=== PATIENT | male | born 1980 | race Caucasian/White ===

== ENCOUNTER 2022-09-16 16:05 | Emergency (ER) | payer MEDICAID, SELFPAY ==
[2022-09-16 16:07] VITALS: BP 134/78; TEMP 36.6; O2SAT 98; BMI 18.8
--- NOTE | 2022-09-16 17:18 | EKG12_ITS ---
Test Reason : Blood Pressure : / mmHG Vent. Rate : 075 BPM Atrial Rate : 075 BPM P-R Int : 120 ms QRS Dur : 084 ms QT Int : 356 ms P-R-T Axes : 072 062 069 degrees QTc Int : 397 ms Normal sinus rhythm with sinus arrhythmia Normal ECG Confirmed by ALANNA WILSON, JAMES ([id number]), film editor RENITA HODGES ([id number]) on 09/20/2022 10:38:09 AM Referred By: FRANCESCA Confirmed By:JAMES MONDRAGON MD
--- NOTE | 2022-09-16 17:35 | NURSING ---
NO OLD EKGS
--- NOTE | 2022-09-16 17:37 | ED.RN ---
Per Dr. Gonzalez- no sitter needed.
--- NOTE | 2022-09-16 17:59 | EDS_ITS ---
HPI HPI - Psych History of Present Illness Chief Complaint: Suicidal Informant: patient Narrative Narrative: Patient is a 42-year-old male with history of bipolar disorder as well as substance abuse presenting for worsening depression. Patient states he has been feeling hopeless. He notes he had a suicide attempt by trying to stab his wrist on April 22 and was admitted to [facility]. He was on Zoloft, Abilify and BuSpar however he ran out of his meds has not followed up with anyone. He notes that he does usually use methamphetamines but stopped using 10 days ago. He intermittently uses marijuana and does use tobacco. Denies any alcohol use. Is currently homeless. Feels that his depression is worsening and is afraid he is on to get to the point that he tries to kill himself again. Currently does not have any HI or SI and has no plan. No other complaints at this time. [facility] NK 09/16/22 [History Last Taken Unknown] Allergy/AdvReac Type Severity Reaction Status Date / Time amphetamine [From Adderall] Allergy Hives Verified 09/16/22 16:06 dextroamphetamine Allergy Hives Verified 09/16/22 16:06 [From Adderall] citalopram [From Celexa] AdvReac Other Verified 09/16/22 16:06 tramadol AdvReac Other Verified 09/16/22 16:06 vilazodone [From Viibryd] AdvReac Vomiting Verified 09/16/22 16:06 Social History Smoking Status: Current every day smoker tobacco type: cigarettes ROS ROS ED Constitutional Constitutional ED: Denies chills or fever(s) Eyes Eyes: Denies change in vision ENT ENT ED: Denies sore throat Cardiovascular Cardiovascular: Denies chest pain Respiratory/Chest Respiratory/Chest: Denies cough Gastrointestinal Gastrointestinal: Denies nausea or vomiting Musculoskeletal Musculoskeletal: Denies arthralgias Psychiatric Psychiatric: Reports depression; Denies anxiety, suicidal ideation or suicidal thoughts EXAM Physical Exam Const Vital Signs: 09/16/22 16:07 Temperature 97.8 F Temperature Source Temporal Blood Pressure 134/78 H Blood Pressure Mean 96 Pulse Ox 98 Oxygen Delivery Method Room Air Positive well nourished and well developed General Appearance ED: well developed and NAD; Negative for pallor HEENT Reports moist mucous membranes Eyes PERRL and EOMs intact bilaterally Neck supple Resp normal respiratory effort and clear to auscultation bilaterally Cardio Rate: regular rate Rhythm: regular rhythm GI non-tender and non-distended Neuro oriented x3 Neuro Narrative: No focal deficits appreciated Sensorium / Orientation: alert Motor Exam: muscle tone normal throughout Psych mental status grossly normal, cooperative, affect normal and speech normal Appearance: grossly normal Attitude: calm Activity / Motor Behavior: appropriate eye contact Speech: normal speech Mood & Affect: depressed Thought Process: normal thought process Thought Content: normal thought content Attention / Concentration: attention grossly intact Memory / Cognition: memory grossly intact Insight: fair Judgement: fair Skin General Skin Exam: Negative for jaundice or pallor Rashes: no rashes MDM MDM MDM Narrative Medical decision making narrative: Patient is evaluated for worsening depression and hopelessness. Patient is calm and cooperative in the ER. Initially denied any HI or SI to me but does have a history of suicide attempt and feels he is getting that bad. When he spoke to Estela from the counseling center he told her that he is having thoughts of wanting to kill himself and would either jump off a bridge, hang himself or stab himself. [place] slip is filled out and patient will be referred to for inpatient psych. He is medically cleared. Patient is given a dose of Ativan for anxiety while in the emergency room. Lab Data Attestation: I reviewed the patient's lab results. Labs: Laboratory Results - last 24 hr 09/16/22 09/16/22 09/16/22 17:30 17:30 17:30 WBC 14.0 H RBC 4.88 Hgb 14.4 Hct 43.5 MCV 89.1 MCH 29.5 MCHC 33.1 RDW Std Deviation 47.2 H RDW Coeff of Lisha 14.6 Plt Count 381 MPV 9.9 Immature Gran % (Auto) 1.300 H Neut % (Auto) 69.1 Lymph % (Auto) 17.9 L [place] % (Auto) 7.8 Eos % (Auto) 2.9 Baso % (Auto) 1.0 Absolute Neuts (auto) 9.7 H Absolute Lymphs (auto) 2.50 Nucleated RBC % 0 Sodium 140 Potassium 4.2 Chloride 109 H Carbon Dioxide 27.0 Anion Gap 4 L BUN 12 Creatinine 1.12 Estim Creat Clear Calc 61.87 Est GFR (MDRD) Af Amer 93 Est GFR (MDRD) Non-Af 77 BUN/Creatinine Ratio 10.7 Glucose 93 Calcium 8.9 Salicylates < 1.7 L Urine Opiates Screen Urine Methadone Screen Acetaminophen < 2.0 L Ur Barbiturates Screen Ur Phencyclidine Scrn Ur Amphetamines Screen MDMA (Ecstasy) Screen U Benzodiazepines Scrn Urine Cocaine Screen U Cannabinoids Screen Ur Drug Screen Comment Ethyl Alcohol < 3.0 09/16/22 18:07 WBC RBC Hgb Hct MCV MCH MCHC RDW Std Deviation RDW Coeff of Lisha Plt Count MPV Immature Gran % (Auto) Neut % (Auto) Lymph % (Auto) [place] % (Auto) Eos % (Auto) Baso % (Auto) Absolute Neuts (auto) Absolute Lymphs (auto) Nucleated RBC % Sodium Potassium Chloride Carbon Dioxide Anion Gap BUN Creatinine Estim Creat Clear Calc Est GFR (MDRD) Af Amer Est GFR (MDRD) Non-Af BUN/Creatinine Ratio Glucose Calcium Salicylates Urine Opiates Screen NEGATIVE Urine Methadone Screen NEGATIVE Acetaminophen Ur Barbiturates Screen NEGATIVE Ur Phencyclidine Scrn NEGATIVE Ur Amphetamines Screen NEGATIVE MDMA (Ecstasy) Screen NEGATIVE U Benzodiazepines Scrn NEGATIVE Urine Cocaine Screen NEGATIVE U Cannabinoids Screen NEGATIVE Ur Drug Screen Comment Ethyl Alcohol Rhythm Strip Rhythm Strip: Sinus Rhythm Rate: 75 Ectopy: None EKG Initial EKG: Attestation: I personally reviewed and interpreted this EKG as follows: Interpretation: Sinus Rhythm Comments: Normal sinus rhythm at a rate of 75 bpm with sinus arrhythmia Normal axis Normal intervals Normal ST segments Discharge Plan Triage Chief Complaint: Suicidal ED Provider: Nancy Gonzalez Dx/Rx/DC Orders Clinical Impression: Depression with suicidal ideation, History of methamphetamine abuse Prescriptions: No Action NK Primary Care Provider: Care Physician,No Primary Referrals: Care Physician,No Primary [Primary Care Provider] - Disposition Disposition: Psychiatric Hospital or Unit
[2022-09-16 18:00] LABS: Absolute Neutrophil Count 9.7 X10^3/uL (2.0-7.7); Basophil# 0.14 X10^3/uL; Eosinophils% 2.9 % (0-5); Hematocrit 43.5 % (40-54); Hemoglobin 14.4 g/dL (13.0-16.5); Lymphocyte % 17.9 % (19-41); Mean Corp Hgb Conc 33.1 g/dL (32-36); Mean Corpuscular Hgb 29.5 pg (27.0-32.0); Mean Corpuscular Volume 89.1 fL (80-94); Mean Platelet Vol. 9.9 fl (6.2-12.0); Monocyte# 1.09 X10^3/uL; Monocyte% 7.8 % (0-10); NRBC Flagged by Analyzer 0 % (0-5); Neutrophil # 9.67 X10^3/uL (2.7-7.7); Neutrophil % 69.1 % (47-70); Platelet Count 381 K/mm3 (150-450); RBC Distribution Width CV 14.6 % (11.6-14.6); RBC Distribution Width SD 47.2 fl (35.1-43.9); Red Blood Count 4.88 M/mm3 (4.6-6.2)
[2022-09-16 18:29] LABS: Anion Gap 4 (5-15); BUN 12 mg/dL (7-18); BUN/Creat Ratio 10.7 RATIO (10-20); Calcium,Total 8.9 mg/dL (8.5-10.1); Chloride 109 mmol/L (98-107); Creatinine, Serum 1.12 mg/dL (0.70-1.30); EST Glomerular Filtration Rate 77 mL/min (>60); Est Glom Filt Rate - Afr Amer 93 mL/min (>60); Estimated Creatinine Clearance 61.87 ml/min; Glucose 93 mg/dL (74-106); Potassium 4.2 mmol/L (3.5-5.1); Sodium Level 140 mmol/L (136-145)
[2022-09-16 18:50] LABS: Amphetamine Urine VISTA NEGATIVE (<1000 ng/mL); Barbiturate Urine VISTA NEGATIVE (< 200 ng/mL); Benzodiazepine Urine VISTA NEGATIVE (< 200 ng/mL); Cocaine Urine VISTA NEGATIVE (< 300 ng/mL); Ecstacy Urine VISTA NEGATIVE (< 500 ng/mL); Methadone Urine VISTA NEGATIVE (< 300 ng/mL); PCP Urine VISTA NEGATIVE (< 25 ng/mL); THC Urine VISTA NEGATIVE (< 50 ng/mL); Vista UDS pH Range 6
[2022-09-16 18:59] LABS: Acetaminophen (Tylenol) Level < 2.0 ug/mL (10.0-30.0); Alcohol, Blood (Medical)-Serum < 3.0 mg/dL; Salicylate < 1.7 mg/dL (2.8-20.0)
--- NOTE | 2022-09-16 21:08 | NURSING ---
ASKED THIS STAIN DIPPER TO CHECK WITH [facility] TO SEE IF THEY WERE NOTIFIED ABOUT PT. THEY SAID YES BUT NEEDED MEDICAL RECORD. THIS STAIN DIPPER FAXED CHART OVER TO [facility]IS[facility]. KRISTINA CALLED TO TALK TO PT AT [phone].
[2022-09-16] MEDS: LORazepam 1 MG Tablet PO (22:46)
[2022-09-16 23:03] VITALS: BP 122/81; PULSE 81; RESP 16; O2SAT 97
--- NOTE | 2022-09-16 23:57 | NURSING ---
PATIENT WAS REFERRED TO [facility] AND [facility]
[2022-09-17] VITALS (8 sets, daily range): BP systolic 132; BP diastolic 68; PULSE 79; RESP 15–19; TEMP 36.4; O2SAT 97
== END 2022-09-17 07:54 ==
PROVIDERS: Emergency Provider Emergency Medicine; Visit Provider Emergency Medicine
DX: R45.851 Suicidal ideations (principal); F32.A Depression, unspecified; F12.90 Cannabis use, unspecified, uncomplicated; F17.210 Nicotine dependence, cigarettes, uncomplicated
CPT/HCPCS: 80048; 80307; 80329; 82077; 85025; 87811; 93005; 99284; G0480